=== PATIENT | female | born 1960 | race Caucasian/White ===

== ENCOUNTER 2019-07-28 02:11 | Observation (INO) | payer BC, OTHER ==
[2019-07-28] MEDS ORDERED: Diltiazem IV push/loading dose 5 MG/ML 5 ML vial (25 mg) IV SLOW PU ONE (02:40)
--- NOTE | 2019-07-28 02:43 | ED ---
HPI Cardiac - HPI Summary HPI Summary: Patient is a 58 y/o F w/ Hx of MS and blood CA who presents to [facility] with complaints of mid-sternal chest pain and palpitations. Patient awoke from sleep at around 0100 07/28/19 with chest pain present. Sub-waiting room EKG revealed that the patient is in new-onset afib. Some nausea is noted as well but she denies cough and fever. Deep breaths are noted to aggravate pain. 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 PSHx of knee surgery, chest surgery for removal of growth on breast reported. Allergy to prochlorperazine and sulfa drugs noted. She endorses rare alcohol usage but denies tobacco and substance usage. On triage, pain is rated 7/10, nothing is noted to aggravate/alleviate Sx. Home medications and allergies are reviewed. - History of Current Complaint Chief Complaint: EDChestPainROMI Stated Complaint: CHEST PAIN PER PT Time Seen by Provider: 07/28/19 02:19 Hx Obtained From: Patient Onset/Duration: Started Hours Ago, Still Present Timing: Constant, Lasting Hours Current Severity: Severe Pain Intensity: 7 Pain Scale Used: 0-10 Numeric Chest Pain Location: Mid Sternal Aggravating Factor(s): Deep Breaths Associated Signs and Symptoms: Positive: Chest Pain, Shortness of Breath, Nausea. Negative: Fever, Cough, Productive Cough - Allergy/Home Medications Allergies/Adverse Reactions: Allergies Allergy/AdvReac Type Severity Reaction Status Date / Time prochlorperazine Allergy Unknown Verified 07/28/19 02:26 [From Compazine] Reaction Details Sulfa (Sulfonamide Allergy Hives Verified 07/28/19 02:26 Antibiotics) Home Medications: Home Medications Aspirin 1 tab PO DAILY 07/28/19 [History Confirmed 07/28/19] Brimonidine P 0.1%(NF) 1 drop BOTH EYES DAILY 07/28/19 [History Confirmed ] Dorzolamide HCl 1 drop BOTH EYES BID 07/28/19 [History Confirmed 07/28/19] Levothyroxine TAB* [Synthroid 88 MCG TAB*] 88 mcg PO DAILY 07/28/19 [History Confirmed 07/28/19] Pantoprazole Sodium 40 mg PO DAILY 07/28/19 [History Confirmed 07/28/19] Rhopressa 1 drop BOTH EYES QPM 07/28/19 [History Confirmed 07/28/19] Vyzulta 1 drop BOTH EYES DAILY 07/28/19 [History Confirmed 07/28/19] prednisoLONE acetate [Prednisolone Acetate] 1 drop BOTH EYES DAILY 07/28/19 [ History Confirmed 07/28/19] PMH/Surg Hx/FS Hx/Imm Hx Endocrine/Hematology History: Reports: Other Endocrine/Hematological Disorders - blood CA Sensory History: Denies: Hx Legally Blind, Hx Deafness Opthamlomology History: Denies: Hx Legally Blind EENT History: Denies: Hx Deafness Neurological History: Reports: Other Neuro Impairments/Disorders - MS - Cancer History Cancer Type, Location and Year: blood cancer - Surgical History Surgery Procedure, Year, and Place: knee surgery, removal of growth from breast Infectious Disease History: No Infectious Disease History: Denies: Traveled Outside the [place] in Last 30 Days - Family History Known Family History: Negative: Seizure Disorder - Social History Alcohol Use: None Substance Use Type: Reports: None Smoking Status (MU): Never Smoked Tobacco Review of Systems - ROS Summary Review of Systems Summary: Home Medications Medication Instructions Recorded Confirmed Type [place] Thyroid 60 mg PO DAILY 07/28/19 07/28/19 History Aspirin 1 tab PO DAILY 07/28/19 07/28/19 History Brimonidine P 0.1%(NF) 1 drop BOTH EYES DAILY 07/28/19 07/28/19 History Dorzolamide HCl 1 drop BOTH EARS BID 07/28/19 07/28/19 History Vyzulta 1 drop BOTH EYES DAILY 07/28/19 07/28/19 History prednisoLONE acetate [Prednisolone 1 drop BOTH EYES DAILY 07/28/19 07/28/19 History Acetate] Negative: Fever Positive: Palpitations, Chest Pain Negative: Cough Positive: Nausea All Other Systems Reviewed And Are Negative: Yes Physical Exam - Summary Physical Exam Summary: General: Well-developed, thin-appearing female. Appears to be in moderate discomfort. HEENT: Normocephalic, Atraumatic. Eyes: Conjuctiva normal, PERRL. Ears: TMs within normal limits. Nares: (-) discharge, (-) erythema. Oropharynx: Clear, mucous membranes moist, (-) exudates. Neck: Soft, FROM, (-) lymphadenopathy, (-) thyromegaly, (-) JVD. Cardiovascular: Irregularly irregular; (-) murmur. Lungs: Clear to auscultation bilaterally (-) wheezes, (-) rales, (-) rhonchi. Abdomen: Soft, non-tender, non-distended, (-) organomegaly, normal bowel sounds. Back: (-) CVA tenderness Extremities: No edema. Skin: Warm, dry, (-) rash. Neuro: Alert and oriented x3, no focal deficits. Psychiatric: Mood normal, affect normal. Triage Information Reviewed: Yes Vital Signs On Initial Exam: Initial Vitals Temp Pulse Resp BP Pulse Ox 96.8 F 86 24 128/100 98 07/28/19 02:21 07/28/19 02:21 07/28/19 02:21 07/28/19 02:21 07/28/19 02:21 Vital Signs Reviewed: Yes Procedures - Sedation Patient Received Moderate/Deep Sedation with Procedure: No Diagnostics - Vital Signs Vital Signs Temp Pulse Resp BP Pulse Ox 07/28/19 02:21 96.8 F 86 24 128/100 98 - Laboratory Result Diagrams: 07/28/19 02:35 07/28/19 02:34 Lab Statement: Any lab studies that have been ordered have been reviewed, and results considered in the medical decision making process. - Radiology CXR Radiology Interpretation Completed By: ED Physician Summary of Radiographic Findings: No infiltrate, no pleural effusion, pending official report. - EKG 0218 Cardiac Rate: Other Rate - afib with rate of 89 BPM EKG Rhythm: Atrial Fibrillation Summary of EKG Findings: EKG showed afib with rate of 89 BPM, no STEMI. This EKG was reviewed and interpreted by ED physician. 0314 Cardiac Rate: NL - rate of 89 BPM EKG Rhythm: Sinus Rhythm EKG Comparison: Other - patient is no longer in afib Summary of EKG Findings: EKG showed NSR with rate of 89 BPM, no STEMI. This EKG was reviewed and interpreted by ED physician. Re-Evaluation - Re-Evaluation First Eval Re-Evaluation Time: 03:15 Change: Improved Comment: Patient's chest pain is decreased in severity after nitro administration. She currently rates her pain 5/10. She additionally notes a decrease of tightness after diltiazem administration. Patient is currently in NSR. Disposition - Course Course Of Treatment: 58 year old female presents with sudden onset of chest pain and palpitations. patient found to be in new onset afib. given fluids, nitro, and diltiazem 10 mg. patient converted to sinus rhythm. pain decreased significantly. initial troponin .03. patient referred to hospitalist for admission - Diagnoses Provider Diagnoses: New onset a-fib, Chest pain - Physician Notifications Discussed Care Of Patient With: Nellie Moy Time Discussed With Above Provider: 03:38 Instructed by Provider To: Other - Patient's case was discussed with Dr. Moy, Dr. Moy accepts for admission - Critical Care Time Critical Care Time: 30-74 min - 55 minutes CCT Discharge ED - Sign-Out/Discharge Documenting (check all that apply): Patient Departure - admit - Discharge Plan Condition: Stable Disposition: ADMITTED TO [facility] - Billing Disposition and Condition Condition: STABLE Disposition: Admitted to [facility] - Attestation Statements Document Initiated by Scribe: Yes Documenting Scribe: BRANDON LEONARD Provider For Whom Scribe is Documenting (Include Credential): ROSA VINES MD Scribe Attestation: BRANDON Fritz, scribed for ROSA VINES MD on 07/31/19 at 0247. Scribe Documentation Reviewed: Yes Provider Attestation: The documentation as recorded by the BRANDON blood accurately reflects the service I personally performed and the decisions made by , ROSA VINES MD Status of Scribe Document: Viewed
[2019-07-28 02:45] LABS: Hematocrit 30 % (35-47); Hemoglobin 10.2 g/dL (12.0-16.0); Mean Corpuscular HGB Conc 34 g/dL (31-36); Mean Corpuscular Hemoglobin 34 pg (27-31); Mean Corpuscular Volume 100 fL (80-97); Mean Platelet Volume 9.6 fL (7.4-10.4); Platelet Count 303 10^3/uL (150-450); Red Blood Count 3.02 10^6 /uL (3.70-4.87); Red Cell Distribution Width 15 % (10-15); White Blood Count 3.1 10^3/uL (3.5-10.8)
[2019-07-28 02:48] LABS: INR 1.03 (0.82-1.09)
[2019-07-28 03:01] LABS: ALT 15 U/L (7-52); AST 16 U/L (13-39); Albumin 4.1 g/dL (3.2-5.2); Albumin/Globulin Ratio 1.4 (1-3); Alkaline Phosphatase 77 U/L (34-104); Anion Gap 9 mmol/L (2-11); BUN/Creatinine Ratio 12.3 (8-20); Blood Urea Nitrogen 10 mg/dL (6-24); CO2 Carbon Dioxide 24 mmol/L (22-32); Calcium 10.2 mg/dL (8.6-10.3); Chloride 106 mmol/L (101-111); EGFR African American 87.3 (>60); EGFR Non-African American 72.1 (>60); Glucose 137 mg/dL (70-100); Magnesium 1.8 mg/dL (1.9-2.7); Potassium 4.1 mmol/L (3.5-5.0); Sodium 139 mmol/L (135-145); Total Protein 7.1 g/dL (6.4-8.9)
[2019-07-28 03:06] LABS: Troponin I 0.03 ng/mL (<0.03)
[2019-07-28] MEDS ORDERED: Nitroglycerin TAB 0.4 MG* 0.4 MG TAB ONE (03:09)
[2019-07-28] MEDS: Nitroglycerin TAB 0.4 MG* 0.4 MG TAB SL ONE ×3 (03:11→03:21)
[2019-07-28] MEDS ORDERED: NS 0.9% 1000 ML** 1,000 ML IV ONE (03:15)
[2019-07-28 03:17] LABS: ABS Basophils 0.1 10^3/ul (0-0.2); ABS Eosinophils 0.1 10^3/ul (0-0.6); ABS Monocytes 0.4 10^3/ul (0-0.8); ABS Neutrophils 1.6 10^3/ul (1.5-7.7); Eosinophil % 2.4 %; Lymphocyte % 33.3 %
[2019-07-28 03:22] LABS: TSH (Thyroid Stimulating Horm) 1.86 mcIU/mL (0.34-5.60)
[2019-07-28] MEDS ORDERED: Acetaminophen TAB* 325 MG PO PRN (03:44)
[2019-07-28] MEDS ORDERED: Morphine INJ* 2 MG/ML 1 ML SYRINGE (TWO MG - NEW SYRINGE VERSION) IV PRN (03:44)
[2019-07-28] MEDS ORDERED: NS 0.9% 1000 ML** 1,000 ML IV SCH (03:45)
[2019-07-28] MEDS ORDERED: Al Hydrox/Mg Hydrox/Simet LIQ* 30 ML UDC PO ONE (04:33)
[2019-07-28] MEDS ORDERED: Thyroid TAB* 60 MG PO SCH (06:00)
[2019-07-28] MEDS ORDERED: Heparin VIAL(*) 5000 UNITS/ML VIAL (FIVE THOUSAND) SUBCUT SCH (06:00)
--- NOTE | 2019-07-28 07:55 | HP ---
CC: Dr. Colin Hernandes * HISTORY AND PHYSICAL: DATE OF ADMISSION: 07/28/19 PRIMARY CARE PROVIDER: None locally. HUMAN RESOURCES BENEFITS SPECIALIST: Dr. Colin Hernandes with a phone number of [phone], it is a hospital and Dr. Shaw works in [place], [place]. CHIEF COMPLAINT: Chest pain. HISTORY OF PRESENT ILLNESS: Sruthi Lazaro is a 58-year-old female with a history of Hodgkin's lymphoma, in remission, who was recently diagnosed with myelodysplastic syndrome and she presents complaining of chest pain. The patient stated that she woke up at 1 a.m. with a sensation of sharp pain in her epigastric region. The pain was not alleviated or aggravated by anything, it was no pleuritic, not associated with shortness of breath. The pain still continues to be a problem and currently is at 3/10 in intensity. She denies any GI problems or symptoms with that. She has a point tenderness in the area overlying her xiphoid process. In addition to that, the patient stated that she has had problems with substernal chest pressure that felt differently 2 months ago for which she had a stress test performed in [facility] in [place], [place], on . Unfortunately, she is not able to give any results of the stress test, but she stated that everything "looked fine." The patient was noted to be in irregular heart rate when she came into our hospital, and as per the ED provider, Dr. Shannon, the patient was noted to be in atrial fibrillation and subsequently received a dose of 10 mg of IV diltiazem and the atrial fibrillation resolved. As per discussion with Dr. Shannon, the patient's first EKG was when she was still in atrial fibrillation. I have access only to a total of 2 EKGs, and apparently, the patient stated that she did not have anymore done today. Both of them shows sinus rhythm. Nevertheless, the patient still continues of chest pain and she is agreeable to overnight stay for further investigation. PAST MEDICAL HISTORY: 1. History of Hodgkin's lymphoma, in remission. 2. History of myelodysplastic syndrome diagnosed this year. 3. History of multiple sclerosis since 1984 with right-sided foot drop. 4. History of heart palpitations and irregular heart beat in the past month for which is seeing a poultry farm laborer as mentioned above in [place], [place]. The patient stated that she felt that timolol eye drops had precipitated the irregular heart beat and she stopped it. 5. History of knee arthroscopy. 6. Cholecystectomy. 7. History of an episode of lyme in 2010. 8. Gastroesophageal reflux disease. 9. Hypothyroidism. 10. The patient had surgery for pectus excavatum many years ago for abnormality of her chest. MEDICATIONS: 1. [place] Thyroid 60 mg daily. 2. Aspirin 81 mg daily. 3. Protonix 40 mg daily. The patient's eye drop does include: 1. Dorzolamide 1 drop both eyes daily. 2. Vyzulta 1 drop both eyes daily. 3. Prednisolone eye drops b.i.d. to both eyes. 4. Brimonidine 1 drop every 12 hours to both eyes. ALLERGIES: Include PROCHLORPERAZINE and SULFA ANTIBIOTICS. FAMILY HISTORY: Mother had a history of acute VA at the age of 55 and she is now doing fine. Father at the age of 78 secondary to unknown cancer. SOCIAL HISTORY: The patient is denies any tobacco, alcohol, or drug use. Her surrogate is her mother, Caitlin Sommer. The patient is visiting currently from [place] and she flew in to [place] 2 days ago. REVIEW OF SYSTEMS: Please see history of present illness. All the remaining 12 systems were reviewed with the patient and were otherwise negative. PHYSICAL EXAMINATION GENERAL: The patient is a pleasant 58-year-old female who is in no acute distress. Alert, awake, and oriented x3. VITAL SIGNS: Blood pressure of 121/70, heart rate 76 and regular, respiratory rate 19, oxygen saturation 98% on room air, temperature of 96.8. HEENT: Head atraumatic and normocephalic. Eyes: Pupils are equal, round, and reactive to light and accommodation. Oropharynx clear. Mucosa moist. NECK: Supple. No JVD. No bruits bilaterally. RESPIRATORY: Clear to auscultation bilaterally. CARDIOVASCULAR: Regular rate and rhythm. No murmur. ABDOMEN: Soft, nontender. Bowel sounds present in all 4 quadrants. EXTREMITIES: Trace bilateral pedal edema; as per the patient, this is chronic. There is no clubbing or cyanosis. The patient is wearing a support brace for her right knee and right heel due to right foot drop. On palpation of the patient's chest, the patient has point tenderness to palpation of the xiphoid process of the sternum. NEUROLOGIC EVALUATION: Cranial nerves II through XII grossly intact. Motor strength is 5/5 bilaterally with the exception of right-sided foot drop. PSYCHIATRIC EVALUATION: Pleasant and cooperative on evaluation, oriented x3. DIAGNOSTIC STUDIES/LAB DATA: White blood cell count of 3.1, hemoglobin of 10.2 , hematocrit of 30, MCV of 100, platelets of 303. D-dimer was below 200. Sodium of 139, potassium 4.1, chloride 106, carbon dioxide 24, BUN 10, creatinine 0.81. Liver function tests were unremarkable. Troponin of 0.03. Lactic acid of 2. TSH of 1.86. The patient's EKG showed normal sinus rhythm with a heart rate of 80 to 90 beats per minute with downsloping ST segments in V4 to V6 with slight elevation. There were no EKGs available for comparison and the first EKG was basically the same. The patient's portable chest x-ray reviewed by myself prior to the official radiologist report shows no areas of cardiopulmonary abnormality. ASSESSMENT AND PLAN: 1. Chest pain in patient with point tenderness of her xiphoid process. The patient has history of surgery on her chest many years ago. It is possible that this is musculoskeletal. Nevertheless, she is going to be placed on overnight observation on telemetry monitored bed. We will try to obtain her stress test that was obtained at [place], [place], just 2 months ago. If that stress test is negative, she does not need to undergo another stress test. We will also obtain a transthoracic echocardiogram to evaluate the patient further. At this point, PE is in low differential due to negative D-dimer and that the patient's chest pain is not pleuritic. The patient also did not complain of any chest pain. 2. For her hypothyroidism, her thyroid replacement is going to be continued. 3. For gastroesophageal reflux disease, her Protonix is going to be continued. 4. For DVT prophylaxis, the patient is going to be placed on heparin subcutaneously. 5. The patient's code status is full. Her surrogate is her mother. TIME SPENT: Approximately 75 minutes was spent on the admission of this patient , more than half that time was spent [id number] with the patient during the interview and physical exam. [id number]/[facility] #: [id number] [facility]
[2019-07-28 08:50] VITALS: BP 136/68
[2019-07-28] MEDS ORDERED: VYZULTA BOTH EYES SCH (09:00)
[2019-07-28] MEDS ORDERED: PTO:Brimonidine 0.2% 5 ML BTL BOTH EYES SCH (09:00)
[2019-07-28] MEDS ORDERED: Aspirin 81 mg CHEW TAB* 81 MG TAB.CHEW PO SCH (09:00)
[2019-07-28] MEDS ORDERED: Magnesium Oxide TAB* 400 MG PO SCH (09:00)
[2019-07-28] MEDS ORDERED: PANTOPRAZOLE 40 MG PO SCH (09:00)
[2019-07-28] MEDS ORDERED: Pantoprazole TAB * 40 MG TAB PO SCH (09:00)
[2019-07-28] MEDS ORDERED: PTO:prednisoLONE 1% OPHTH.SUSP* 5 ML OPHTH.SUSP BOTH EYES SCH (09:00)
[2019-07-28] MEDS ORDERED: LEVOTHYROXINE 88 MCG PO SCH (09:00)
[2019-07-28] MEDS ORDERED: Aspirin TAB* 325 MG PO SCH (09:00)
[2019-07-28] MEDS ORDERED: PTO:Dorzolamide 2% OPTH (NF) 10 ML BTL BOTH EYES SCH (09:00)
--- NOTE | 2019-07-28 14:22 | DS ---
DISCHARGE SUMMARY: DATE OF ADMISSION: 07/28/19 DATE OF DISCHARGE: 07/28/19 ADMITTING PROVIDER: Dr. Nellie Moy. ATTENDING PHYSICIAN ON DAY OF DISCHARGE: Chay Thompson MD OUTPATIENT FORMAL SERVICE WAITER: Dr. Colin Hernandes (sp?), phone number [phone], [place], [place]; possibly the [facility]. PRIMARY CARE PROVIDER: Dr. Juani Mason, [facility] [place] [facility] phone number [phone]. CHIEF COMPLAINT: Chest pain. PRINCIPAL DIAGNOSES: Acute coronary syndrome, ruled out; chest pain, possible musculoskeletal or other etiology. HISTORY OF PRESENT ILLNESS AND HOSPITAL COURSE: Sruthi Lazaro is a 58-year-old female with past medical history of Hodgkin's lymphoma (in remission and is status post radiation to the chest and neck for the course of treatment of about 1 year, unclear how much that was with the radiation), recently diagnosed myelodysplastic syndrome, multiple sclerosis with right-sided footdrop. She was visiting [place] from her home in [place], [place]. She had a large Thanksgiving dinner. She woke up town planner of admission around 1 a.m. with sharp pain in her epigastric and substernal area. It was not resolving, so she presented to [facility]. She rated it as a 3/10 in intensity. Her initial troponin was 0.03. Her initial EKG was without ischemic changes. The machine read it as atrial fibrillation and she received 10 mg of diltiazem in the emergency room. On review, it looks more consistent with normal sinus rhythm with clear P waves before every QRS with regular intervals. She also got nitroglycerin, which made her lightheaded, but the chest pain resolved. She recently has had an extensive cardiological workup after she developed sensation of severe chest pressure that radiated up to her neck and right shoulder. This was done at [facility] in [place], [place] on and included a stress test and she thinks that everything "looked fine." We are still awaiting on her records. She followed with a potato chip packaging machine operator and she initially was on a short 12-hour environmental monitoring technician, which she described as having occasional skipped beats and then she got a 14-day heart monitor, which she submitted back about a week ago and has not heard back from the potato chip packaging machine operator about the results. She has not had return of any of that squeezing-like chest pressure since that event. She notably has been diagnosed with hyperlipidemia in the past, which she has not wanted to take a statin medication. She reports her LDL was above 200 and she is seeking to address this with dietary means. Her lipid panel on recheck here was LDL of 190, HDL of 39, total cholesterol of 265. Her glucose was initially elevated at 137. Hemoglobin A1 was added and has returned since at 5.5. Her second troponin drawn approximately 5 hours and 10 minutes after the first and dropped down to 0.00. She was asymptomatic and preferring not to pursue additional studies especially since she has had a recent stress test. She is a never smoker. She does not, given her MS with right footdrop, do much exercise, but she sometimes is able to an exercise bike and she does not get chest pain with that. She also notably has status post pectus excavatum surgery at age of 10 and on exam she had some tenderness to palpation at the xiphoid process and lower sternum. She denies any history of acid reflux like symptoms (though notably is on PPI at home). The myelodysplastic syndrome has been recently diagnosed and there are plans for possible chemotherapy it sounds like, but this has not started. She was eager for discharge and ACS has ruled out and with chest pain that was atypical. She is at elevated risk given what sounds like substantial radiation to her mediastinum about a decade ago. Also notably, when she was evaluated by her potato chip packaging machine operator, there was some concern that maybe her timolol eye drops have been associated with her skipped beats and that has since been stopped. DISCHARGE MEDICATIONS: Include: 1. Aspirin 81 mg daily. 2. Brimonidine 0.1% both eyes daily. 3. Dorzolamide HCl 1 drop both eyes b.i.d. 4. Levothyroxine 88 mcg p.o. daily. 5. Pantoprazole 40 mg p.o. daily. 6. Prednisolone 1 drop both eyes daily. 7. Rhopressa (netarsudil) 1 drop both eyes q.p.m. 8. Vyzulta (latanoprostene bunod) 1 drop both eyes daily. She did not want to initiate statin medication. FOLLOWUP: Please follow up with PCP Dr. Juani Mason within [address] Colin Hernandes , her potato chip packaging machine operator. DISPOSITION: Home. CONDITION: Stable. TIME SPENT ON DISCHARGE: 40 minutes. [id number]/[facility] #: [id number] [facility]
[2019-07-28] MEDS ORDERED: RHOPRESSA BOTH EYES SCH (18:00)
== END 2019-07-28 10:25 | disposition home or self-care (01) ==
LOC: ED 02:11 → MEDTELE 03:44
PROVIDERS: ADMIT Internal Medicine; ATTEND Internal Medicine
DX: R07.9 Chest pain, unspecified (principal); K21.9 Gastro-esophageal reflux disease without esophagitis; E03.9 Hypothyroidism, unspecified; R00.2 Palpitations; G35 Multiple sclerosis; Z79.82 Long term (current) use of aspirin; R94.31 Abnormal electrocardiogram [ECG] [EKG]; Z79.899 Other long term (current) drug therapy; Z85.79 Personal history of other malignant neoplasms of lymphoid, hematopoietic and related tissues; Z85.71 Personal history of Hodgkin lymphoma
CPT/HCPCS: 36415; 71045; 80053; 80061; 83036; 83605; 83735; 84443; 84484; 85025; 85379; 85610; 93005; 99284; A9270-GY; G0378; J1644